=== PATIENT | male | born 1960 | race Caucasian/White ===

== ENCOUNTER 2020-09-02 12:08 | Emergency (ER) | payer BC, MEDICARE ==
[2020-09-02 12:31] LABS: HEMOGLOBIN 14.6 gm/dl (14.0-17.5); RED BLOOD COUNT 4.82 M/UL (4.20-5.50); WHITE BLOOD COUNT 17.1 K/UL (4.5-11.0)
[2020-09-02 13:02] LABS: BUN/CREATININE RATIO 7 (0-10)
== END 2020-09-02 18:24 | disposition short-term general hospital (02) ==
LOC: ER1 12:08
PROVIDERS: Family Medicine
DX: F10.229 Alcohol dependence with intoxication, unspecified (principal); J18.9 Pneumonia, unspecified organism; R09.02 Hypoxemia; J98.4 Other disorders of lung; Y90.8 Blood alcohol level of 240 mg/100 ml or more; Z20.822 Contact with and (suspected) exposure to COVID-19
CPT/HCPCS: 0240U; 36600; 51702; 70450; 71045; 80053; 80307; 81001; 82550; 82553; 82803; 83605; 83690; 83735; 83874; 84484; 85025; 85610; 87040; 93005; 96365; 99285; G0480; J2543; J7030

== ENCOUNTER → 2021-04-15 | Outpatient (CLI) | payer BC, MEDICARE | LOC: EXRD 09:29 | DX: J64 Unspecified pneumoconiosis (principal) | CPT/HCPCS: 71046 ==